=== PATIENT | male | born 1990 | race Caucasian/White ===

== ENCOUNTER 2021-05-30 13:30 | Emergency (ER) | payer OTHER ==
[~2021-05-30] VITALS: Ht 193 cm; Wt 104.0 kg
--- NOTE | 2021-05-30 14:13 | PHYS DOC ---
General Adult EDM: Chief Complaint: RAPID HEART RATE HPI: HPI: Patient is a 31-year-old male presents from PCPs office to be evaluated. Patient states "I was seen by PCP for a regular visit and mentioned that sometimes I get heart palpitations". "So she told me needed to come to the ER to be evaluated". "I did have Covid in February and was treated for a PE and him currently taking Eliquis". Denies shortness of breath, chest pain. Patient denies any symptoms at this time. (DMITRI MCKENZIE APRN) Review of Systems: Review of Systems: ROS At least 10 ROS systems have been reviewed and are negative except as documented in the HPI. General: Negative except as outlined in HPI above. Skin: Negative except as outlined in HPI above. HEENT: Negative except as outlined in HPI above. Neck: Negative except as outlined in HPI above. Respiratory: Negative except as outlined in HPI above.. Cardiovascular: Negative except as outlined in HPI above. Abdomen: Negative except as outlined in HPI above. : Negative except as outlined in HPI above. Back/MSK: Negative except as outlined in HPI above. Neuro: Negative except as outlined in HPI above. Psych: Negative except as outlined in HPI above. (DMITRI MCKENZIE APRN) Physical Exam: PE: Constitutional: Well developed, well nourished, no acute distress, non-toxic appearance. [] HENT: Normocephalic, atraumatic, bilateral external ears normal, oropharynx moist, no oral exudates, nose normal. [] Eyes: PERRLA, EOMI, conjunctiva normal, no discharge. [] Neck: Normal range of motion, no tenderness, supple, no stridor. [] Cardiovascular:Heart rate regular rhythm, no murmur [] Lungs & Thorax: Bilateral breath sounds clear to auscultation [] Abdomen: Bowel sounds normal, soft, no tenderness, no masses, no pulsatile masses. [] Skin: Warm, dry, no erythema, no rash. [] Back: No tenderness, no CVA tenderness. [] Extremities: No tenderness, no cyanosis, no clubbing, ROM intact, no edema. [] Neurologic: Alert and oriented X 3, normal motor function, normal sensory function, no focal deficits noted. [] Psychologic: Affect normal, judgement normal, mood normal. [] (DMITRI MCKENZIE APRN) EKG: EKG: Sinus Rhythum, HR 63 BPM. No stemi. Read by Dr. Gonzalez[] (DMITRI MCKENZIE APRN) Radiology/Procedures: Radiology/Procedures: [] (DMITRI MCKENZIE APRN) Heart Score: C/O Chest Pain: No Risk Factors: Risk Factors: DM, Current or recent (<one month) smoker, HTN, HLP, family history of CAD, obesity. Risk Scores: Score 0 - 3: 2.5% MACE over next 6 weeks - Discharge Home Score 4 - 6: 20.3% MACE over next 6 weeks - Admit for Clinical Observation Score 7 - 10: 72.7% MACE over next 6 weeks - Early Invasive Strategies (DMITRI MCKENZIE APRN) Course & Med Decision Making: Course & Med Decision Making Pertinent Labs and Imaging studies reviewed. (See chart for details) [] 31-year-old male presents from PCPs office to be evaluated after mentioning he has heart palpitations once in a while. Patient was directed by PCP to be evaluated in the ER. Patient denies chest pain, shortness of breath. Patient is denying all symptoms. Patient reports he only came in because his PCP asked him to. CBC, CMP, EKG ordered to rule out acute abnormality. EKG shows sinus rhythm, heart rate 63 bpm, no STEMI. Read by Dr. Gonzalez at 1350. Discussed results with patient. Advised patient that he needs to follow back up with PCP for a cardiology referral. Patient is appreciative and okay with discharge plan. Patient is hemodynamically stable and denying all symptoms upon disposition. (DMITRI MCKENZIE APRN) Course & Med Decision Making I have participated in the care of this patient and I have reviewed and agree with all pertinent clinical information above including history, exam, and recommendations. Jerry Gonzalez DO (JERRY GONZALEZ DO) Kashif Disclaimer: Kashif Disclaimer: This electronic medical record was generated, in whole or in part, using a voice recognition dictation system. (DMITRI MCKENZIE APRN) Departure Departure: Impression: Primary Impression: Encounter for medical assessment Additional Impression: Heart palpitations Disposition: HOME / SELF CARE / HOMELESS Condition: STABLE Referrals: RAPHAEL TURNER (PCP) Additional Instructions: You were seen in the emergency room after being sent in by your PCP. All of your labs and EKG were unremarkable. Please call your PCP make a follow-up appointment to discuss a referral for cardiology. Return to the emergency room if you have worsening symptoms or concerns. EMERGENCY DEPARTMENT GENERAL DISCHARGE INSTRUCTIONS Thank you for coming to [facility] (ED) today and trusting us with you care. We trust that you had a positivie experience in our Emergency Department. If you wish to speak to the department management, you may call the director at [phone]. YOUR FOLLOW UP INSTRUCTIONS ARE FOLLOWS: 1. Do you have a private Doctor? If you do not have a private doctor, please ask for a resource list of physicians or clinics that may be able to assist you with follow up care. 2. The Emergency Physician has interpreted your x-rays. The X-Ray specialist will also review them. If there is a change in the findings, you will be notified in 48 hours when at all possible. 3. A lab test or culture has been done, your results will be reviewed and you will be notified if you need a change in treatment. ADDITIONAL INSTRUCTIONS AND INFORMATION: 1. Your care today has been supervised by a physician who is specially trained in emergency care. Many problems require more than one evaluation for a complete diagnosis and treatment. We recommend that you schedule your follow up appointment as recommended to ensure complete treatment of you illness or injury. If you are unable to obtain follow up care and continue to have a problem, or if your condition worsens, we recommend that you return to the ED. 2. We are not able to safely determine your condition over the phone nor are we able to give sound medical advice over the phone. For these safety reasons, if you call for medical advice we will ask you to come to the ED for further evaluation. 3. If you have any questions regarding these discharge instructions please call the ED at [phone]. SAFETY INFORMATION: In the interest of safety, wellness, and injury prevention; we encourage you to wear your sealbelt, if you smoke; quite smoking, and we encourage family to use a protective helmet for bicycling and other sporting events that present an increased risk for head injury. IF YOUR SYMPTOMS WORSEN OR NEW SYMPTOMS DEVELOP, OR YOU HAVE CONCERNS ABOUT YOUR CONDITION; OR IF YOUR CONDITION WORSENS WHILE YOU ARE WAITING FOR YOUR FOLLOW UP APPOINTMENT; EITHER CONTACT YOUR PRIMARY CARE DOCTOR, THE PHYSICIAN WHOSE NAME AND NUMBER YOU WERE GIVEN, OR RETURN TO THE ED IMMEDIATELY. DMITRI MCKENZIE APRN May 30, 2021 14:13 JERRY GONZALEZ DO Jun 02, 2021 00:32
--- NOTE | 2021-05-30 14:20 | EKG ---
[address] [address] Test Date: 2021-05-30 Test Time: 13:44:00 Pat Name: LOUIS SOTO Department: Room: Gender: M K 13 Principal: CORY : 1990 Requested By: DMITRI MCKENZIE Order Number: [id number] Reading MD: Ajay Faulkner MD Measurements Intervals [place] Rate: 63 P: 45 SC: 166 QRS: 68 QRSD: 100 T: 38 QT: 396 QTc: 408 Interpretive Statements SINUS RHYTHM Electronically Signed On 05-30-2021 14:56:37 CDT by Ajay Faulkner MD
[2021-05-30 14:22] VITALS: BP 133/72
[2021-05-30 14:37] LABS: BASO # 0.1 x10^3/uL (0.0-0.2); BASO % 2 % (0-3); EOS # 0.3 x10^3/uL (0.0-0.7); EOS % 5 % (0-3); HEMATOCRIT 45.6 % (39.0-53.0); HEMOGLOBIN 15.6 g/dL (13.0-17.5); LYMPH % 36 % (24-48); MEAN CORPUSCULAR HEMOGLOBIN 31 pg (25-35); MEAN CORPUSCULAR HGB CONC 34 g/dL (31-37); MEAN CORPUSCULAR VOLUME 90 fL (79-100); MONO # 0.4 x10^3/uL (0.0-1.1); MONO % 7 % (0-9); NEUT # 2.7 x10^3uL (1.8-7.7); NEUT % 50 % (31-73); PLATELET COUNT 186 x10^3/uL (140-400); RED BLOOD COUNT 5.09 x10^6/uL (4.30-5.70); RED CELL DISTRIBUTION WIDTH 13.8 % (11.5-14.5); WHITE BLOOD COUNT 5.5 x10^3/uL (4.0-11.0)
[2021-05-30 14:46] LABS: CALCIUM 9.2 mg/dL (8.5-10.1); CREATININE 0.7 mg/dL (0.7-1.3); GFR 132.4; POTASSIUM 3.9 mmol/L (3.5-5.1)
== END 2021-05-30 15:44 | disposition home or self-care (01) ==
LOC: ER 13:30
DX: Z00.00 Encounter for general adult medical examination without abnormal findings (principal); R00.2 Palpitations
CPT/HCPCS: 36415; 80048; 85025; 93005; 99284-25